=== PATIENT | male | born 1950 | race African-American/Black ===

== ENCOUNTER 2018-02-06 18:29 | Inpatient (IN) | payer MEDICARE ==
[~2018-02-06 18:29] MED LIST: Heparin 1,000 UNITS/ML VIAL ONE
[2018-02-06 18:59] LABS: Bilirubin Negative (Negative); Blood, Urine Negative (Negative); Clarity CLEAR (Clear); Glucose, Urine (Dipstick) 100 mg/dL (Negative); Leukocyte Negative (Negative); Nitrite Negative (Negative); Protein, Urine (Dipstick) 100 mg/dL (Neg-Trace); Specific Gravity, Urine 1.008 (1.002-1.036); Urobilinogen 0.2 mg/dL (0.2-1.0)
[2018-02-06 19:00] LABS: Bacteria/HPF None Seen HPF (None Seen); Hyaline Casts/LPF 0-3 HYALINE CAST LPF (0-3 Hyaline); Pathc Cast-AUWi Flag 0.14 (0-2.49); RBC/HPF None Seen HPF (0-3); Squamous Epithelial None Seen HPF (0-3); WBC/HPF None Seen HPF (0-3)
[2018-02-06 19:08] LABS: Amphetamine Not Detected (NotDetected); Barbiturates Screen Not Detected (NotDetected); Benzodiazepine Screen Not Detected (NotDetected); Cocaine Metabolite Screen Not Detected (NotDetected); Medtox Reader # READER 4; Methadone Not Detected (NotDetected); Methamphetamine Not Detected (NotDetected); Opiate Screen Not Detected (NotDetected); Oxycodone Screen Not Detected (NotDetected); Phencyclidine (PCP) Not Detected (NotDetected); THC/Cannabinoid Screen Not Detected (NotDetected); Tricyclic Screen Not Detected (NotDetected)
[2018-02-06 19:09] LABS: Medtox Control Line Valid? VALID (VALID)
[2018-02-06 19:15] LABS: #Basophils 0.1 thou/uL (0.0-0.2); #Eosinphils 0.2 thou/uL (0.0-0.7); #Lymphocytes 1.6 thou/uL (1.20-3.40); #Monocytes 1.1 thou/uL (0.11-0.59); #Neutrophils 7.1 thou/uL (1.40-6.50); %Basophils 0.5 % (0.0-1.0); %Eosinophils 1.7 % (0.0-10.0); %Lymphocytes 16.2 % (21.0-51.0); %Monocytes 10.9 % (0.0-10.0); %Neutrophils 70.6 % (42.0-75.0); Hemoglobin 12.1 g/dL (14.0-18.0); Mean Corpuscular HGB CONC 33.5 g/dL (32.0-36.0); Mean Corpuscular Hemoglobin 30.8 pg (27.0-31.0); Mean Corpuscular Volume 91.9 fL (78.0-98.0); Mean Platelet Volume 8.3 fL (7.4-10.4); Platelet Count 155 thou/uL (130-400); RBC Distribution Width 15.3 % (11.5-14.5); Red Blood Cell (RBC) Count 3.94 mill/uL (4.70-6.10)
[2018-02-06 19:38] LABS: ALT (SGPT) Less than 7 U/L (8-55); AST (SGOT) 5 U/L (5-34); Albumin 3.7 g/dL (3.4-4.8); Alkaline Phosphatase 65 U/L (40-150); Anion Gap 27 mmol/L (10-20); BUN (Urea Nitrogen) 96 mg/dL (8.4-25.7); Bilirubin, Total 0.6 mg/dL (0.2-1.2); CK (CPK) 73 U/L (30-200); Calc. Creatinine Clearance 0 mL/min (70-130); Calcium 8.1 mg/dL (7.8-10.44); Carbon Dioxide 17 mmol/L (23-31); Chloride 105 mmol/L (98-107); Estimated GFR-MDRD 3; Glucose 69 mg/dL (80-115); Potassium 5.5 mmol/L (3.5-5.1); Protein, Total 6.7 g/dL (5.8-8.1); Sodium 143 mmol/L (136-145)
[2018-02-06 19:39] LABS: CKMB 1.5 ng/mL (0-6.6); Troponin I 0.043 ng/mL (< 0.028)
[2018-02-06 19:45] LABS: Base Excess-Venous -1.8 mmol/L (0 (+/- 2.5)); CO2 Tension (PvCO2) 29.4 mmHg (41.0-51.0); Calcium, Ionized 0.79 mmol/L (1.12-1.32); Hemoglobin - Calc 12.2 g/dL (12.0-18.0); O2 Tension (PvO2) 80.2 mmHg (35.0-45.0); Potassium 5.1 mmol/L (3.4-4.7); T. Carbon Dioxide 21.9 mmol/L (1.0-85.0); pH (Venous) 7.462 (7.35-7.45); vO2 Saturation-calc 96.6 % (94-98)
--- NOTE | 2018-02-06 20:28 | RAD ---
RADIOGRAPH CHEST 1 VIEW: HISTORY: A 67-year-old male with dyspnea. FINDINGS: There is cardiomegaly. The thoracic aorta is tortuous and ectatic. There is no evidence of air space density, pulmonary edema, or pneumothorax. The lateral costophrenic angles are sharp. There is an old fracture deformity at the lateral aspect of the right fifth rib. IMPRESSION: 1) No acute pulmonary findings. 2) Cardiomegaly without congestive heart failure. 3) Ectasia of thoracic aorta. jn [] POS: JIN
[2018-02-06] MEDS ORDERED: Ondansetron ODT 4 MG TAB SL PRN (21:29)
[2018-02-06] MEDS ORDERED: Acetaminophen 325 MG TAB PO PRN (21:29)
[2018-02-06] MEDS ORDERED: Ondansetron HCl/PF 4 MG/2 ML Vial IVP PRN (21:29)
[2018-02-06 21:48] VITALS: BMI 28.9
--- NOTE | 2018-02-06 22:13 | CON ---
DATE OF CONSULTATION: 02/06/2018 NEPHROLOGY CONSULTATION REASON FOR CONSULTATION: Hyperkalemia. HISTORY OF PRESENT ILLNESS: A 67-year-old gentleman who missed dialysis with a clotted access, prese nted to the hospital with potassium of more than 7. The patient denies any nausea, vomiting or chest pain. PAST MEDICAL HISTORY: Significant for end-stage renal disease, hypertension, anemia, history of seco ndary hyperparathyroidism, history of right nephrectomy, history of proteinuria, history of tunneled dialysis catheter, history of AV fistula. HOME MEDICATION: List reviewed. HOSPITAL MEDICATIONS: List reviewed. ALLERGIES: Reviewed. REVIEW OF SYSTEMS: A 15-point review of systems was performed and was negative except for positives noted above. GENERAL: Weakness- HEAD: Headache- NECK: No swelling or lumps. NOSE: No epistaxis or discharge. EYES: No diplopia or pain. RESPIRATORY: Dyspnea- CARDIOVASCULAR: Chest pain- GASTROINTESTINAL: Nausea- /MOUNTER SOUSAPHONES: Hematuria- MUSCULOSKELETAL: No joint pain. NEUROPSYCHIATIC SYSTEMS: No suicidal ideation. No ideation. SKIN: Denies any rash or ulcer. CONSTITUTIONAL: No fever or chills. PHYSICAL EXAMINATION: GENERAL: Patient is awake and alert. VITAL SIGNS: Afebrile, pulse 75, breathing 16, blood pressure 200/100. HEAD/NECK: Normocephalic. Atraumatic. EYES: EOMI. No deformity. EARS: Clear. No ulcers. NOSE: Intact. No lesions. MOUTH: Clear. No discharge. THROAT: Clear. No exudate. LUNGS: Clear. No crackles. CARDIAC: S1, S2. No rub. ABDOMEN: Benign. BS+. GENITALIA/RECTUM: Starr absent. BACK/EXTREMITIES: Edema 0+ Ulcer- NEUROLOGICAL: Alert and motor intact. SKIN: Rash- Bruise- LYMPHATICS: Edema- Ulcer- LABORATORY DATA: Pending. ASSESSMENT AND RECOMMENDATIONS: 1. Stage 6 chronic kidney disease. We will plan dialysis, failed access, will plan temporary cathet er per surgery. Surgery input appreciated. 2. Hypertension. Plan ultrafiltration. 3. Anemia, stable. 4. Medications based on glomerular filtration rate are appropriate. Noncompliance is a major issue. The patient should have presented to the hospital yesterday for access, but failed to do so.
--- NOTE | 2018-02-06 23:08 | OP ---
PREOPERATIVE DIAGNOSIS: Thrombosed fistula right upper arm inflow proximal radial artery, outflow ce phalic vein, previous intervention elsewhere occluding the basilic vein outflow. SURGEON: Dr. Wolfgang Pruett. ANESTHESIA: 1% Xylocaine. PROCEDURE IN DETAIL: At the patient's bedside, his right groin was clipped of hair, prepared with Ch loraPrep, draped in routine fashion. Seldinger technique used to place a Trialysis catheter, secured with 3-0 nylon suture. Each port aspirated blood and flushed with heparinized saline solution.
[2018-02-06 23:09] LABS: Hep B Core Total Ab Non-Reactive (NonReactive); Hep B Core Total Index 0.08 S/CO (0-0.79)
[2018-02-06 23:10] LABS: HBSAB Concentration 4.85 mIU/mL; HBSAg Index 0.21 S/CO (0-0.99); Hep B Surf AB Non-Reactive (NonReactive); Hep B Surf Ag Non-Reactive S/CO (NonReactive)
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
[2018-02-07] MEDS ORDERED: Cyclobenzaprine 10 MG TAB PO PRN (05:35)
--- NOTE | 2018-02-07 06:13 | CON ---
DATE OF CONSULTATION: 02/06/2018 REASON FOR CONSULTATION: Medical management of medical comorbidities. PRIMARY CARE PHYSICIAN: None reported. CODE STATUS: Full code. TIME OF EVALUATION: 3:00 a.m. CHIEF COMPLAINT: Tenderness and redness in the right upper arm where he has a dialysis access. HISTORY OF PRESENT ILLNESS: This is a 67-year-old male patient with past medical history of end-sta ge renal disease on hemodialysis. The patient has right upper arm redness, associated with swelling, decreased range of motion due to tenderness. The patient reported that it has been like that for th e past 2 days, unable to get dialysis yesterday. He also reported associated shortness of breath, an d occasional diarrhea. No clear triggers, no alleviating factors, Dr. Pruett is admitting the patien t, and placed a hemodialysis catheter. By the time of my examination the patient has received dialys is and is feeling comfortable, much improved. Has had a new hemodialysis catheter in the right groin . REVIEW OF SYSTEMS: CONSTITUTIONAL: No fever, no chills. Generalized weakness. RESPIRATORY: No cough, sputum production or shortness of breath. CARDIOVASCULAR: No chest pain, palpitations, shortness of breath. GASTROINTESTINAL: No nausea, vomiting, diarrhea or abdominal pain. MESSAGE BROKER DEVELOPER: No dizziness, headache or feeling lightheaded. GENITOURINARY: No burning of urination. EXTREMITIES: The patient has right upper arm redness, swelling, tenderness, decreased range of motio n due to tenderness. All other systems were reviewed and negative except for the findings mentioned above. PAST MEDICAL HISTORY: The patient has a history of end-stage renal disease on hemodialysis, ____, hy pertension. PAST SURGICAL HISTORY: Nephrectomy, right dialysis fistula, left foot surgery. PSYCHIATRIC HISTORY: No history of suicidal ideation or any psych history. SOCIAL HISTORY: The patient smokes half pack of cigarettes per day. FAMILY HISTORY: Noncontributory for current presentation. ALLERGIES: CODEINE. MEDICATIONS: Clonidine, hydralazine, aspirin, calcium, carvedilol, isosorbide, pantoprazole, sevelam er. PHYSICAL EXAMINATION: VITAL SIGNS: On presentation, blood pressure 207/100 with heart rate 77, respiratory rate was 18, te mperature 97.8, oxygen saturation 94. GENERAL APPEARANCE: The patient is alert, oriented, no acute distress. HEENT: Eyes; normal conjunctivae. Moist oral mucosa. Anicteric. NECK: No JVD. RESPIRATORY: Bilateral air entry. No rales, no wheezing. Symmetric expansion. CARDIOVASCULAR: Normal rate, regular rhythm. No murmurs. No gallop or edema. Pressure was hyperte nsive on presentation. After dialysis blood pressure has been on the low side. ABDOMEN: Soft, normal bowel sounds. MUSCULOSKELETAL: Baseline range of motion and strength. No tenderness. SKIN: Warm, intact. No pallor, no rash, except for the right upper arm where the patient has rednes s, tenderness. ____ and decreased range of motion, increased temperature in that area. NEURO: No evidence of any focal weakness. Baseline speech. Cranial nerves seems to be intact. PSYCHIATRIC: The patient is in a good mood, not sad, oriented, optimal judgment. IMAGING: EKG was reviewed. The patient had normal sinus rhythm, ventricular rate 77, ID 154, QRS 76 , QT corrected 470. Normal EKG. Chest x-ray was reviewed. The patient has no acute cardiopulmonary findings, cardiomegaly without congestive heart failure, ____ of thoracic aorta. LABORATORY DATA: Reviewed. White count 10, hemoglobin 12.1, MCV 91, platelet count 155. Blood gas was done; ABGs; pH 7.4, pCO2 of 29, pO2 of 80. Chemistry: Sodium 143, potassium 5.5 on presentation , chloride 105, carbon dioxide 17, anion gap 27, BUN 96, creatinine 18.0, GFR 3, glucose 69. Magnesi um was 3. Total bilirubin 0.6. LFTs are negative. Beta natriuretic peptide was 1358. Troponin 0.0 43. Urine was negative. Toxicology was negative. Hepatitis panel was negative. ASSESSMENT AND PLAN: 1. The patient was admitted to Dr. Preutt's service for malfunctioning right upper arm AV fistula, p floresita has received hemodialysis through hemodialysis catheter in the right groin area. 2. End-stage renal disease on hemodialysis. Dr. Walker has been consulted. The patient received dial ysis, has tolerated well, except for blood pressure being on the low side, which is normal for this p floresita. 3. Hypertensive urgency. The patient presented with systolic blood pressure in the 200s, this has r esolved after hemodialysis. We will reconcile home medication, we will monitor. 4. Hyperlipidemia. Continue statin, low cholesterol diet is advised. 5. Deep venous thrombosis prophylaxis. Thank you for allowing us to participate in the care of your patient. Feel free to call with any que stions.
[2018-02-07] MEDS: cloNIDine 0.2 MG TAB PO SCH ×2 (08:47→20:48)
--- NOTE | 2018-02-07 08:47 | PRG ---
DATE OF SERVICE: 02/07/2018 Ric Mcallister is in IMCU. He could be moved to the medical floor. He was admitted last night for hyp erkalemia related to lack of dialysis and transferred from [facility] Emergency R o[facility]. His potassium was 7 at [facility] and on recheck here was 5.5. He underwen t dialysis last night. He is scheduled for a fistulogram today right arm. He has had Interventional Radiology at [facility], occlude his basilic vein outflow, direct outflow to the cephalic vein in 2014. I was completely unaware of this. The patient is undergoing ultrasound vein evaluation for consideration of possibility of considering a new dialysis access pending the ability of Radiology t o resurrect his right arm cephalic vein fistula. He has a temporary Trialysis catheter. Await Inter ventional Radiology fistulogram results. Await vascular ultrasound, n.p.o. until interventional stud y is complete.
[2018-02-07] MEDS: Carvedilol 25 MG TAB PO SCH ×2 (08:48→20:48)
[2018-02-07] MEDS: Sevelamer Carbonate 800 MG TAB PO SCH ×2 (08:48→17:03)
[2018-02-07] MEDS: hydrALAZINE 25 MG TAB PO SCH ×3 (08:49→20:48)
[2018-02-07] MEDS: Calcium Acetate 667 MG CAP PO SCH ×3 (08:49→17:03)
[2018-02-07] MEDS: traMADol HCl 50 MG TAB PO SCH ×2 (08:50→20:48)
--- NOTE | 2018-02-07 09:57 | PDOC.PN ---
- Subjective Encounter Start Date: 02/07/18 Encounter Start Time: 09:55 Subjective: feels well - Objective MAR Reviewed: Yes Vital Signs & Weight: Vital Signs (12 hours) Temp Pulse Resp BP BP Pulse Ox 02/07/18 08:49 77 198/98 H 02/07/18 08:47 198/98 H 02/07/18 08:03 99 F 77 20 02/07/18 07:15 99 F 77 20 193/89 H 96 02/07/18 04:12 97.7 F 73 16 187/97 H 94 L 02/07/18 03:18 145/84 H 02/07/18 01:55 195/66 H 02/07/18 00:17 98.1 F 86 18 166/86 H 98 Weight Weight 183 lb 11.2 oz I&O: 02/06/18 02/07/18 02/08/18 06:59 06:59 06:59 Intake Total 30 Output Total 1999 Balance -1970 Result Diagrams: 02/06/18 19:06 02/06/18 19:04 Phys Exam - Physical Examination Neck: no JVD Respiratory: clear to auscultation bilateral Cardiovascular: RRR, no significant murmur Gastrointestinal: soft, positive bowel sounds Musculoskeletal: no edema Dx/Plan (1) HTN (hypertension) Code(s): I10 - ESSENTIAL (PRIMARY) HYPERTENSION Status: Chronic Qualifiers: Hypertension type: essential hypertension Qualified Code(s): I10 - Essential (primary) hypertension (2) Acidosis, metabolic Code(s): E87.2 - ACIDOSIS Status: Acute (3) Hyperkalemia Code(s): E87.5 - HYPERKALEMIA Status: Acute (4) ESRD on hemodialysis Code(s): N18.6 - END STAGE RENAL DISEASE; Z99.2 - DEPENDENCE ON RENAL DIALYSIS Status: Chronic - Plan NPO for HD access -: cont HD per renal -: IV BP control as needed * .
--- NOTE | 2018-02-07 10:01 | ULT ---
BILATERAL UPPER EXTREMITY VENOUS MAPPING: Date: 02/07/18 HISTORY: Dialysis access. End-stage renal disease. Clotted right upper extremity arteriovenous dialysis fistul a. FINDINGS: There is evidence of a right upper extremity arteriovenous dialysis fistula, which appears to represe nt a brachial artery to cephalic vein fistula. The entire right upper extremity cephalic vein outflow is occluded with echogenic material/thrombus throughout the cephalic vein outflow of the fistula. RIGHT UPPER EXTREMITY BASILIC VEIN DIAMETERS: Upper Arm: 4.4 mm Mid Arm: 4.5 mm Distal Arm: 3.0 mm Antecubital Fossa: 2.3 mm Proximal Forearm: 2.7 mm Mid Forearm: 1.4 mm Distal Forearm: 1.0 mm LEFT UPPER EXTREMITY CEPHALIC VEIN DIAMETERS: Upper Arm: 2.8 mm Mid Arm: 2.4 mm Distal Arm: 2.0 mm Antecubital Fossa: 3.2 mm Proximal Forearm: 2.0 mm Mid Forearm: 2.2 mm Distal Forearm: 1.6 mm LEFT UPPER EXTREMITY BASILIC VEIN DIAMETERS: Upper Arm: 3.5 mm Mid Arm: 3.8 mm Distal Arm: 2.9 mm Antecubital Fossa: 1.9 mm Proximal Forearm: 1.3 mm Mid Forearm: 0.7 mm Distal Forearm: 1.1 mm RIGHT UPPER EXTREMITY ARTERIAL DIAMETERS: Brachial Artery: 0.5 mm Radial Artery: 3.1 mm Ulnar Artery: 3.0 mm LEFT UPPER EXTREMITY ARTERIAL DIAMETERS: Brachial Artery: 5.6 mm Radial Artery: 2.5 mm Ulnar Artery: 2.3 mm IMPRESSION: 1. Occlusion of the right upper extremity cephalic vein outflow of the arteriovenous dialysis fistul a. 2. Venous diameters in the bilateral upper extremities as described above. POS: [facility]
[2018-02-07] MEDS ORDERED: Activase 2 MG VIAL CATH SCH (12:30)
--- NOTE | 2018-02-07 16:31 | PRG ---
DATE OF SERVICE: 02/07/2018 SUBJECTIVE: Patient was seen and examined at bedside and overnight events noted. Patient denies any shortness of breath or chest pain or palpitation. No history of nausea or vomiting or diarrhea or f ever or chills or cramps. OBJECTIVE: General: This is a 67-year-old, well-built male in no acute distress VITAL SIGNS: Temperature 98, pulse 77, respiration 18, pressure 185/97. HEENT: Atraumatic, normocephalic, Oral mucosa is moist NECK: Supple CARDIOVASCULAR: S1S2 heard, Rate and rhythm regular RESPIRATORY: Clear to auscultation GASTROINTESTINAL: Abdomen is soft MUSCULOSKELETAL: No tenderness, No edema DERMATOLOGIC: No skin rash NEUROLOGIC: Alert and awake and oriented X3, No focal neurologic deficits. Moving all the extremities . PSYCHIATRIC: Mood and affect normal LABORATORY DATA: Potassium is 5.1, BUN is 96, creatinine is 8.1 No labs done today. ASSESSMENT AND PLAN: 1. End-stage renal disease. Continue dialysis. No acute indication for dialysis. We will check la bs in the morning. Patient had dialysis early this morning. 2. Hypertension. Titrate medications. Remove fluid with dialysis. 3. Anemia. 4. Edema. 5, Hyperkalemia, better. 6. Continue dialysis as tolerated.
[2018-02-07] MEDS: Ibuprofen 200 MG TAB PO PRN (18:23)
--- NOTE | 2018-02-07 18:57 | SPC ---
RIGHT UPPER EXTREMITY DIALYSIS FISTULOGRAM: PERCUTANEOUS BALLOON ANGIOPLASTY RIGHT UPPER EXTREMITY DIALYSIS FISTULA: HISTORY: Renal failure. Poor function, right upper extremity dialysis fistula. FLUOROSCOPY TIME: 7.8 minutes FINDINGS: After explaining the procedure and answering all questions, the right upper extremity was prepped and draped in the usual sterile fashion. Sterile technique, buffered local anesthesia, and a 22 gauge n eedle were used to gain access to the most peripheral portion of the right upper extremity cephalic d ialysis fistula, at the level of the antecubital fossa. A short, [address] carefully place d. A 4 Nepalese catheter was placed over a 0.035 Glidewire to the most central aspect of the cephalic vein. Imaging shows the cephalic vein centrally to be widely patent. Peripheral to the right axilla , the vein becomes very small with a very slow trickle of flow. A focal area of stricture was seen a t the level of the proximal humeral shaft and eventually addressed. At the level of the mid to distal humeral shaft, two focal areas of aneurysmal dilatation of the ceph alic fistula, visible on the surface, show large, oval, hard thrombi. Given the size, location, and hardness/chronicity, tPA was not given, as it would not address the vahid y hard clot within the aneurysms. A 6 mm x 4 cm balloon was carefully placed to the central aspect of the cephalic fistula. Serial dil atations were made along the course of the cephalic fistula. A full balloon profile was achieved, wi th the exception of the exception of the stricture at the level of the proximal humeral shaft. The balloon was then exchanged for a 6 mm x 2 cm cutting balloon. The balloon was placed at the leve l of the stricture. Multiple dilatations were performed, eventually achieving full balloon profile, relieving the focal stricture. Serial imaging after this again showed a slow trickle of flow around the hard clots within the focal areas of aneurysmal dilatation. Some extravasation of contrast was seen at the level of stricture di latation. IMPRESSION: 1. While there was successful balloon angioplasty of the stricture within the central aspect of the cephalic venous fistula, it did very little to improve the very slow trickle of flow throughout the f istula. The cause of the near complete stasis is the very hard oval clots within the two focal areas of aneurysmal dilatation of the fistula, at the level of the mid to distal humeral shaft. 2. While the outlook for this fistula is bleak, one surgical consideration may be surgical thrombect chalo of the focal areas of hard clot within the two foci of dilatation. POS: [facility]
--- NOTE | 2018-02-07 19:43 | PRG ---
DATE OF SERVICE: 02/07/2018 SUBJECTIVE: Ric Mcallister underwent angiogram of his fistula and has planned Interventional Radiology declotting of his fistula of right upper arm. This is planned for this afternoon. Ultrasound vein mapping both arms has been performed revealing right upper extremity basilic vein 4.4, 4.5, ant ecubital fossa, 2.7 mm proximal forearm. Left lower extremity cephalic vein basilic vein 3.5, 3.8, 3.9 and 1.9 mm. LUNGS: Clear to auscultation. CARDIAC: Regular rate and rhythm without murmur or gallop. ABDOMEN: Soft, nontender, no masses. ASSESSMENT AND PLAN: Thrombosed fistula of right upper arm. Plan Interventional Radiology. Awaitin g that procedure. Continue dialysis through temporary dialysis catheter. Ultrasound vein mapping re veals acceptable basilic vein (has been clipped previously by Interventional Radiology right) and ayan ilable left upper arm cephalic vein, basilic vein for future fistula access if necessary. Await Radi ology intervention attempts.
[2018-02-07] MEDS: Atorvastatin Calcium 20 MG TAB PO SCH (20:48)
[2018-02-07] MEDS: tiZANidine HCl 4 MG TAB PO SCH (20:48)
[2018-02-08 04:11] LABS: Anion Gap 23 mmol/L (10-20); BUN (Urea Nitrogen) 62 mg/dL (8.4-25.7); Calc. Creatinine Clearance 6 mL/min (70-130); Calcium 8.4 mg/dL (7.8-10.44); Carbon Dioxide 23 mmol/L (23-31); Chloride 98 mmol/L (98-107); Estimated GFR-MDRD 5; Glucose 93 mg/dL (80-115); Potassium 5.6 mmol/L (3.5-5.1); Sodium 138 mmol/L (136-145)
[2018-02-08] MEDS: Calcium Acetate 667 MG CAP PO SCH ×3 (07:39→17:23)
[2018-02-08] MEDS: Ibuprofen 200 MG TAB PO PRN ×2 (07:39→15:20)
[2018-02-08] MEDS: Sevelamer Carbonate 800 MG TAB PO SCH ×2 (07:40→17:23)
[2018-02-08] MEDS: Carvedilol 25 MG TAB PO SCH ×2 (09:11→20:37)
[2018-02-08] MEDS: cloNIDine 0.2 MG TAB PO SCH ×2 (09:11→20:37)
[2018-02-08] MEDS: traMADol HCl 50 MG TAB PO SCH ×2 (09:12→20:37)
[2018-02-08] MEDS: hydrALAZINE 25 MG TAB PO SCH ×3 (09:12→20:36)
--- NOTE | 2018-02-08 11:16 | PRG ---
Patient Name: SAMAN PATTERSON Date of service: 02/08/2018 Subjective: Patient was seen and examined at bedside and overnight events noted. Patient denies any shortness of breath or chest pain or palpitation. No history of nausea or vomiting or diarrhea or fever or chills or cramps. Objective: General: This is a well-built male in no apparent distress. Vital signs: Temperature 97.9, pulse 70, respiratory rate 18, blood pressure 190/92. HEENT: Atraumatic, normocephalic. Oral mucosa is moist. Neck: Supple. Cardiovascular: S1 S2 heard. Rate and rhythm regular. Respiratory: Clear to auscultation. Gastrointestinal: Abdomen is soft. Musculoskeletal: No tenderness. No edema. Dermatologic: No skin rash. Neurologic: Alert and awake and oriented X3. No focal neurologic deficits. Moving all the extremit ies. Psychiatric: Mood and affect normal. LABORATORY DATA: Potassium 5.6, BUN 62, creatinine is 13.3. ASSESSMENT AND PLAN: 1. End-stage renal disease. We will have dialysis today and TTS as tolerated. 2. Dialysis access being clotted. Follow up with surgeon. 3. Hyperkalemia. We will have dialysis. 4. Hypertension. We will increase hydralazine dose, might need to add amlodipine and calcium channe l collin. 5. Edema, remove fluid. 6. Monitor blood pressure after dialysis and will increase hydralazine, okay with adding amlodipine if needed.
--- NOTE | 2018-02-08 11:26 | PDOC.PN ---
- Subjective Encounter Start Date: 02/08/18 Encounter Start Time: 11:25 Subjective: pain R arm from declotting procedure - Objective MAR Reviewed: Yes Vital Signs & Weight: Vital Signs (12 hours) Temp Pulse Resp BP BP Pulse Ox 02/08/18 09:12 70 200/71 H 02/08/18 09:11 200/71 H 02/08/18 07:36 97.9 F 70 14 190/92 H 95 02/08/18 07:19 97.7 F 66 15 02/08/18 04:30 97.7 F 66 15 154/61 H 98 02/08/18 00:19 97.7 F 70 20 147/67 H 97 Weight Weight 189 lb 2 oz I&O: 02/07/18 02/08/18 02/09/18 06:59 06:59 06:59 Intake Total 30 560 Output Total 1999 100 Balance -1970 460 Result Diagrams: 02/06/18 19:06 02/08/18 03:48 Phys Exam - Physical Examination Neck: no JVD Respiratory: clear to auscultation bilateral Cardiovascular: RRR, no significant murmur Gastrointestinal: soft, positive bowel sounds Musculoskeletal: edema present Dx/Plan (1) HTN (hypertension) Code(s): I10 - ESSENTIAL (PRIMARY) HYPERTENSION Status: Chronic Qualifiers: Hypertension type: essential hypertension Qualified Code(s): I10 - Essential (primary) hypertension (2) Acidosis, metabolic Code(s): E87.2 - ACIDOSIS Status: Acute (3) Hyperkalemia Code(s): E87.5 - HYPERKALEMIA Status: Acute (4) ESRD on hemodialysis Code(s): N18.6 - END STAGE RENAL DISEASE; Z99.2 - DEPENDENCE ON RENAL DIALYSIS Status: Chronic - Plan cont HD -: failed declotting of fistula -: surg for fistula on L tomorrow * .
--- NOTE | 2018-02-08 18:50 | PRG ---
DATE OF SERVICE: 02/08/2018 Ric Mcallister had a fistulogram yesterday unsuccessful. His outflow was poor. He has multiple aneury sms. Unfortunately, this fistula cannot be salvaged. There are several options. His basilic vein o utflow in his right upper arm has been clipped above the antecubital fossa by Interventional Radiolog y. One could do a basilic vein transposition fistula using the arterial inflow from the proximal art vinicius in the right arm to transpose the basilic vein. Another option would be to place a new fistula i n his left arm either option requires placement of hemodialysis catheter. The patient desires a seco nd option. We will plan n.p.o. after midnight tonight and plan placement of left arm fistula and hem odialysis catheter tomorrow. The patient will be discharged home after the surgery tomorrow.
[2018-02-08] MEDS: tiZANidine HCl 4 MG TAB PO SCH (20:35)
[2018-02-08] MEDS: Atorvastatin Calcium 20 MG TAB PO SCH (20:37)
[2018-02-09 04:49] LABS: Anion Gap 17 mmol/L (10-20); BUN (Urea Nitrogen) 40 mg/dL (8.4-25.7); Calc. Creatinine Clearance 9 mL/min (70-130); Calcium 9.1 mg/dL (7.8-10.44); Carbon Dioxide 28 mmol/L (23-31); Chloride 98 mmol/L (98-107); Estimated GFR-MDRD 7; Glucose 92 mg/dL (80-115); Potassium 4.7 mmol/L (3.5-5.1); Sodium 138 mmol/L (136-145)
[2018-02-09] MEDS: Sevelamer Carbonate 800 MG TAB PO SCH ×2 (08:33→17:47)
[2018-02-09] MEDS: Calcium Acetate 667 MG CAP PO SCH ×3 (08:33→17:47)
[2018-02-09] MEDS: hydrALAZINE 25 MG TAB PO SCH ×3 (09:17→20:51)
[2018-02-09] MEDS: Carvedilol 25 MG TAB PO SCH ×2 (09:17→20:53)
[2018-02-09] MEDS: cloNIDine 0.2 MG TAB PO SCH ×2 (09:18→20:53)
[2018-02-09] MEDS: traMADol HCl 50 MG TAB PO SCH ×2 (09:18→20:53)
[2018-02-09] MEDS ORDERED: Amlodipine 5 MG TAB PO SCH (10:30)
--- NOTE | 2018-02-09 11:03 | PDOC.PN ---
- Subjective Encounter Start Date: 02/09/18 Encounter Start Time: 11:02 Subjective: hungry, waiting for surgery today - Objective MAR Reviewed: Yes Vital Signs & Weight: Vital Signs (12 hours) Temp Pulse Resp BP BP Pulse Ox 02/09/18 09:18 167/80 H 02/09/18 09:17 73 156/82 H 02/09/18 08:00 97.6 F 73 15 98 02/09/18 07:31 97.6 F 73 15 142/85 H 93 L 02/09/18 04:00 98.0 F 69 14 150/74 H 95 02/09/18 00:27 97.5 F L 65 12 119/65 95 Weight Weight 182 lb 11.2 oz I&O: 02/08/18 02/09/18 02/10/18 06:59 06:59 06:59 Intake Total 560 1090 Output Total 100 2150 Balance 460 -1060 Result Diagrams: 02/06/18 19:06 02/09/18 03:30 Phys Exam - Physical Examination Neck: no JVD Respiratory: clear to auscultation bilateral Cardiovascular: RRR, no significant murmur Gastrointestinal: soft, positive bowel sounds Musculoskeletal: no edema Dx/Plan (1) HTN (hypertension) Code(s): I10 - ESSENTIAL (PRIMARY) HYPERTENSION Status: Chronic Qualifiers: Hypertension type: essential hypertension Qualified Code(s): I10 - Essential (primary) hypertension (2) Acidosis, metabolic Code(s): E87.2 - ACIDOSIS Status: Acute (3) Hyperkalemia Code(s): E87.5 - HYPERKALEMIA Status: Acute (4) ESRD on hemodialysis Code(s): N18.6 - END STAGE RENAL DISEASE; Z99.2 - DEPENDENCE ON RENAL DIALYSIS Status: Chronic - Plan cont current plan of care AV fistula today, then DC * .
--- NOTE | 2018-02-09 12:53 | PRG ---
DATE OF SERVICE: 02/09/2018. SUBJECTIVE: Patient was seen and examined at bedside and overnight events noted. Patient denies any shortness of breath or chest pain or palpitation. No history of nausea or vomiting or diarrhea or f ever or chills or cramps. OBJECTIVE: GENERAL: This is a well-built male, in no apparent distress. VITAL SIGNS: Temperature 97.6, pulse 60, respiratory rate 18, blood pressure 108/63. HEENT: Atraumatic, normocephalic. Oral mucosa is moist. NECK: Supple. CARDIOVASCULAR: S1, S2 heard. Rate and rhythm regular. RESPIRATORY: Clear to auscultation. GASTROINTESTINAL: Abdomen is soft. MUSCULOSKELETAL: No tenderness, no edema. DERMATOLOGIC: No skin rash. NEUROLOGIC: Alert and awake and oriented x3. No focal neurologic deficits. Moving all the extremit ies. PSYCHIATRIC: Mood and affect normal. LABORATORY DATA: Potassium is 4.7, BUN is 40, creatinine is 9.7. ASSESSMENT AND PLAN: 1. End-stage renal disease. Continue hemodialysis as tolerated. 2. Hyperkalemia, better. 3. . 4. Edema. Overall, blood pressure seems to be better. Tolerating dialysis well. Follow up with Surgery for ac cess placement and we will follow.
--- NOTE | 2018-02-09 17:27 | PRG ---
DATE OF SERVICE: 02/09/2018 SUBJECTIVE: Ric Mcallister's surgery is running late today. The patient prefers to delay this, so we can eat. It would be too late this evening to perform this operation. We will let him eat today and plan on performing his left arm fistula, hemodialysis catheter on Wednesday.
[2018-02-09] MEDS: tiZANidine HCl 4 MG TAB PO SCH (20:53)
[2018-02-09] MEDS: Atorvastatin Calcium 20 MG TAB PO SCH (20:53)
--- NOTE | 2018-02-10 07:12 | PDOC.PN ---
- Subjective Encounter Start Date: 02/10/18 Encounter Start Time: 07:10 Subjective: surgery postponed til 02/11. no CO - Objective MAR Reviewed: Yes Vital Signs & Weight: Vital Signs (12 hours) Temp Pulse Resp BP BP Pulse Ox 02/10/18 04:00 98.1 F 71 18 139/69 94 L 02/10/18 00:00 98.5 F 74 18 166/60 H 95 02/09/18 20:53 164/77 H 02/09/18 20:51 74 164/77 H 02/09/18 20:16 98.5 F 74 16 171/51 H 96 02/09/18 19:15 97.8 F 75 15 99 Weight Weight 176 lb 4.8 oz I&O: 02/09/18 02/10/18 02/11/18 06:59 06:59 06:59 Intake Total 1090 890 Output Total 2150 Balance -1060 890 Result Diagrams: 02/06/18 19:06 02/09/18 03:30 Additional Labs: Accuchecks 02/09/18 16:43 POC Glucose 77 Phys Exam - Physical Examination Neck: no JVD Respiratory: clear to auscultation bilateral Cardiovascular: RRR, no significant murmur Gastrointestinal: soft, positive bowel sounds Musculoskeletal: no edema Dx/Plan (1) HTN (hypertension) Code(s): I10 - ESSENTIAL (PRIMARY) HYPERTENSION Status: Chronic Qualifiers: Hypertension type: essential hypertension Qualified Code(s): I10 - Essential (primary) hypertension (2) Acidosis, metabolic Code(s): E87.2 - ACIDOSIS Status: Acute (3) Hyperkalemia Code(s): E87.5 - HYPERKALEMIA Status: Acute (4) ESRD on hemodialysis Code(s): N18.6 - END STAGE RENAL DISEASE; Z99.2 - DEPENDENCE ON RENAL DIALYSIS Status: Chronic - Plan cont current meds -: HD today -: AV fitula tomorrow, DC home post op * .
[2018-02-10] MEDS ORDERED: Amlodipine 5 MG TAB PO SCH (09:00)
[2018-02-10] MEDS ORDERED: Heparin 10,000 UNITS/ 10 ML VIAL ONE (09:00)
[2018-02-10] MEDS: Sevelamer Carbonate 800 MG TAB PO SCH ×2 (09:13→15:34)
[2018-02-10] MEDS: hydrALAZINE 25 MG TAB PO SCH ×3 (09:13→20:38)
[2018-02-10] MEDS: traMADol HCl 50 MG TAB PO SCH ×2 (09:14→20:40)
[2018-02-10] MEDS: Carvedilol 25 MG TAB PO SCH ×2 (09:14→20:38)
[2018-02-10] MEDS: Calcium Acetate 667 MG CAP PO SCH ×3 (15:35→17:19)
[2018-02-10] MEDS: cloNIDine 0.2 MG TAB PO SCH ×2 (15:35→20:38)
--- NOTE | 2018-02-10 19:19 | PRG ---
DATE OF SERVICE: 02/10/2018 NEPHROLOGY PROGRESS NOTE SUBJECTIVE: The patient was seen and examined at bedside and overnight events noted. The patient de nies any shortness of breath or chest pain or palpitation. No history of nausea or vomiting or diarr hea or fever or chills or cramps. OBJECTIVE: GENERAL: This is a well-built male, in no apparent distress. VITAL SIGNS: Temperature 97.0, pulse 62, respiratory rate 16, blood pressure 164/77. HEENT: Atraumatic, normocephalic. Oral mucosa is moist. NECK: Supple. CARDIOVASCULAR: S1, S2 heard. Rate and rhythm regular. RESPIRATORY: Clear to auscultation. GASTROINTESTINAL: Abdomen is soft. MUSCULOSKELETAL: No tenderness. No edema. DERMATOLOGIC: No skin rash. NEUROLOGIC: Alert and awake and oriented x3. No focal neurologic deficits. Moving all the extremit ies. PSYCHIATRIC: Mood and affect normal. LABORATORY DATA: No labs done today. ASSESSMENT AND PLAN: 1. End-stage renal disease. Continue dialysis as tolerated. 2. Hyperkalemia, better. 3. Hypertension. Titrate blood pressure medicines. 4. Edema, controlled. 5. Anemia. Will have Epogen. 6. We will titrate blood pressure medicines. We will continue to follow.
[2018-02-10] MEDS: Atorvastatin Calcium 20 MG TAB PO SCH (20:38)
[2018-02-10] MEDS: tiZANidine HCl 4 MG TAB PO SCH (20:38)
[2018-02-10] MEDS ORDERED: Milk Of Magnesia 30 ML UDCUP PO PRN (21:46)
[2018-02-11] MEDS ORDERED: Fleet Enema 133 ML BOT PR PRN (00:15)
[2018-02-11 05:01] LABS: Anion Gap 15 mmol/L (10-20); BUN (Urea Nitrogen) 43 mg/dL (8.4-25.7); Calc. Creatinine Clearance 9 mL/min (70-130); Calcium 9.1 mg/dL (7.8-10.44); Carbon Dioxide 29 mmol/L (23-31); Chloride 96 mmol/L (98-107); Estimated GFR-MDRD 7; Glucose 96 mg/dL (80-115); Potassium 5.2 mmol/L (3.5-5.1); Sodium 135 mmol/L (136-145)
[2018-02-11] MEDS: Sevelamer Carbonate 800 MG TAB PO SCH ×2 (08:29→16:47)
[2018-02-11] MEDS: Calcium Acetate 667 MG CAP PO SCH ×3 (08:29→16:47)
[2018-02-11] MEDS ORDERED: Amlodipine 5 MG TAB PO SCH (09:00)
[2018-02-11] MEDS: traMADol HCl 50 MG TAB PO SCH ×2 (09:39→20:25)
[2018-02-11] MEDS: Carvedilol 25 MG TAB PO SCH ×2 (09:39→20:25)
[2018-02-11] MEDS: hydrALAZINE 25 MG TAB PO SCH ×4 (09:43→20:23)
[2018-02-11] MEDS: cloNIDine 0.2 MG TAB PO SCH ×2 (09:43→17:48)
--- NOTE | 2018-02-11 10:46 | PDOC.PN ---
- Subjective Encounter Start Date: 02/11/18 Encounter Start Time: 08:50 -: old records requested/rev Pt seen and examined, chart reviewed in its entirety, this is my first visit with this patient consult for medical managemnt, admitted for clotted permcath, removed, temporary africa placed into right groin, last HD yesterday without issue. to [facility] today for new permcath and fistula creation with Autumn. Pt only complaint is hungry. no F/C, no N/V/d/C, no cP or SOB All systems reviewed and neg x as above - Objective MAR Reviewed: Yes Vital Signs & Weight: Vital Signs (12 hours) Temp Pulse Resp BP Pulse Ox 02/11/18 07:38 98.2 F 63 18 127/67 95 02/11/18 03:25 98 F 70 16 141/65 H 97 02/10/18 23:00 98.4 F 77 16 108/57 L 97 Weight Weight 176 lb 4.8 oz I&O: 02/10/18 02/11/18 02/12/18 06:59 06:59 06:59 Intake Total 890 520 Balance 890 520 Result Diagrams: 02/06/18 19:06 02/11/18 04:25 Phys Exam - Physical Examination Constitutional: NAD HEENT: PERRLA, moist MMs, sclera anicteric, oral pharynx no lesions Neck: no nodes, no JVD, supple, full ROM Respiratory: no wheezing, no rales, no rhonchi, clear to auscultation bilateral Cardiovascular: RRR, no significant murmur, no rub Gastrointestinal: soft, non-tender, no distention, positive bowel sounds Musculoskeletal: pulses present, edema present Neurological: non-focal, normal sensation, moves all 4 limbs Lymphatic: no nodes Psychiatric: normal affect, A&O x 3 Skin: no rash, normal turgor, cap refill <2 seconds Deviation from normal: permcath to right groin dressed, C/D/I Dx/Plan (1) Clotted dialysis access Code(s): T82.49XA - OTH COMPLICATION OF VASCULAR DIALYSIS CATHETER, INIT ENCNTR Status: Acute Qualifiers: Encounter type: initial encounter Qualified Code(s): T82.49XA - Other complication of vascular dialysis catheter, initial encounter Comment: removed, to be replaced today (2) Acidosis, metabolic Code(s): E87.2 - ACIDOSIS Status: Resolved (3) Hyperkalemia Code(s): E87.5 - HYPERKALEMIA Status: Resolved (4) HTN (hypertension) Code(s): I10 - ESSENTIAL (PRIMARY) HYPERTENSION Status: Chronic Qualifiers: Hypertension type: essential hypertension Qualified Code(s): I10 - Essential (primary) hypertension (5) Acute on chronic diastolic CHF (congestive heart failure) Code(s): I50.33 - ACUTE ON CHRONIC DIASTOLIC (CONGESTIVE) HEART FAILURE Status : Resolved (6) ESRD on hemodialysis Code(s): N18.6 - END STAGE RENAL DISEASE; Z99.2 - DEPENDENCE ON RENAL DIALYSIS Status: Chronic - Plan cont current plan of care, out of bed/ambulate * .
--- NOTE | 2018-02-11 11:04 | PRG ---
Patient Name: SAMAN PATTERSON Date of service: 02/11/2018 Subjective: Patient was seen and examined at bedside and overnight events noted. Patient denies any shortness of breath or chest pain or palpitation. No history of nausea or vomiting or diarrhea or fever or chills or cramps. Objective: General: This is a well-built male in no apparent distress. Vital signs: Temperature 98.2, pulse 60, respiratory rate 18, blood pressure 127/67. HEENT: Atraumatic, normocephalic. Oral mucosa is moist. Neck: Supple. Cardiovascular: S1 S2 heard. Rate and rhythm regular. Respiratory: Clear to auscultation. Gastrointestinal: Abdomen is soft. Musculoskeletal: No tenderness. No edema. Dermatologic: No skin rash. Neurologic: Alert and awake and oriented X3. No focal neurologic deficits. Moving all the extremit ies. Psychiatric: Mood and affect normal. LABORATORY DATA: Potassium is 5.3, BUN 43, creatinine 7.3. ASSESSMENT AND PLAN: 1. End-stage renal disease on hemodialysis. 2. Hyperkalemia. 3. Edema. 4. Hypertension. 5. Anemia. Follow up with Surgery for access issues. Continue on dialysis TTS as tolerated.
[2018-02-11] MEDS ORDERED: Midazolam HCl 2 mg/2 ml Vial ONE (11:13)
[2018-02-11] MEDS ORDERED: Fentanyl 100 MCG/2 ML VIAL ONE ×2 (11:13→13:34)
[2018-02-11] MEDS ORDERED: PROPOFOL 200 MG/20 ML VIAL ONE (13:09)
[2018-02-11] MEDS ORDERED: ePHEDrine/0.9% NaCl/PF SYRINGE 50 mg/10 ml ONE (13:09)
[2018-02-11] MEDS ORDERED: PHENYLEPHRINE-NS 100 MCG/ML 10 ML SYRINGE ONE (13:09)
[2018-02-11] MEDS ORDERED: Heparin 10,000 UNITS/1 ML VIAL ONE (13:23)
[2018-02-11] MEDS ORDERED: Lidocaine 2% 10 ML INJ ONE (13:23)
[2018-02-11] MEDS ORDERED: Sodium Chloride 0.9% 20 ML ONE (13:23)
[2018-02-11] MEDS ORDERED: Bupivacaine HCl 0.5%/Epinephrine 1:200,000/PF 30 ml Vial ONE (13:23)
[2018-02-11] MEDS ORDERED: Heparin 5,000 UNITS/ML VIAL ONE (13:23)
[2018-02-11] MEDS ORDERED: Protamine Sulfate 50 MG/5 ML VIAL ONE (13:23)
[2018-02-11] MEDS ORDERED: Propofol 1,000 MG/100 ML VIAL IV ONE (13:26)
--- NOTE | 2018-02-11 16:28 | RAD ---
PORTABLE AP CHEST X-RAY 02/11/18 HISTORY: Post central line placement. COMPARISON: 02/06/18. FINDINGS: There has been interval placement of a left internal jugular vein hemodialysis catheter with tip ove rlying the cavoatrial junction. No pneumothorax or pleural effusion is seen. Cardiac silhouette is ma gnified by projection but is enlarged. Pulmonary vasculature is at the upper limits of normal. Vascul ar calcifications seen in the thoracic aorta. remote right sided rib fractures are seen. No other int erval change. IMPRESSION: Interval placement of tunneled left internal jugular vein hemodialysis catheter without evidence of a pneumothorax. POS: [facility]
[2018-02-11] MEDS: Ibuprofen 200 MG TAB PO PRN (17:48)
[2018-02-11] MEDS: tiZANidine HCl 4 MG TAB PO SCH (20:23)
[2018-02-11] MEDS: Atorvastatin Calcium 20 MG TAB PO SCH (20:25)
[2018-02-11 20:28] VITALS: BP 177/85
--- NOTE | 2018-02-11 21:06 | OP ---
PREOPERATIVE DIAGNOSES: End-stage renal disease, thrombosed cephalic vein fistula, right arm. Inter ventional Radiology clipping of basilic vein arterial inflow above the antecubital fossa, right arm. POSTOPERATIVE DIAGNOSES: End-stage renal disease, thrombosed cephalic vein fistula, right arm, Inter ventional Radiology clipping of basilic vein arterial inflow above the antecubital fossa, right arm, with occluded right internal jugular outflow. Inadequate veins left arm for primary fistula. PROCEDURES PERFORMED: Ultrasound-guided placement of left internal jugular cuffed tunnel hemodialysi s catheter, angiodynamics precurved. Fluoroscopy used. Exploration of left forearm finding veins in adequate for a primary fistula contrary to ultrasound vein mapping. Note in the future, patient can have a right arm primary fistula basilic vein transposition using the stump of the cephalic vein for arterial inflow, possibly. We will schedule as an outpatient in the future. He may need a prostheti c graft. SURGEON: Dr. Wolfgang Pruett ANESTHESIA: Regional TIVA. Local 0.5% Marcaine with epinephrine, 30 mL, mixed with 2% Xylocaine, 10 mL PROCEDURE IN DETAIL: The patient was taken to the operating room where under regional anesthesia and intravenous sedation, his left upper extremity, neck and chest were prepared with ChloraPrep, draped in routine fashion. Ultrasound guidance used to cannulate the right internal jugular vein, but I co uld not thread the J wire indicative of outflow obstruction due to prior catheter. Left internal jugular vein was cannulated using ultrasound guidance and J wire threaded with some flu oroscopic manipulation required. I did direct the J-wire into the superior vena cava. Using the lisa neling device, precurved angiodynamics cuffed tunnel hemodialysis catheter tunneled between the two i ncisions, placing the fabric cuff beneath the skin exit site. Catheter secured with 2 interrupted noriega tures of 3-0 nylon and sterile dressing applied. Smaller medium size dilators placed over the J-wire and internal jugular vein removed. Dilator and pull-away sheath placed over the J-wire into the int ernal jugular vein and under fluoroscopic visualization directed in the superior vena cava following the J wire. J wire and dilator removed and Catheter placed through pull-away sheath and under fluoro scopic visualization, was directed in superior vena cava, and required some manipulation. Pull-away sheath removed. Catheter noted to be in good position fluoroscopically, the platysma approximated wi th 4-0 Monocryl, skin with subdermal 4-0 Monocryl and DermaGlue applied. Each port aspirated blood a nd flushed with heparinized saline solution with 1000 units of heparin per mL indicated volume of the port. In the left arm, proximal forearm incision made longitudinally below the antecubital fossa, carried d own skin and subcutaneous tissue. The antecubital veins were small. The basilic vein was small. Th ere was a more lateral than usual cephalic vein, but its inflow was small and inadequate. No adequat e venous structures were present for a primary fistula. Patient had potential right arm fistul a, thus a prosthetic graft was not placed. Subcutaneous tissues were approximated with 3-0 Monocryl, skin with subdermal 4-0 Monocryl and DermaGlue applied. Note, the patient will need a right arm primary fistula or graft in the future. He will probably nee d a basilic vein transposition type fistula.
[2018-02-12 05:22] VITALS: TEMP 97.3
== END 2018-02-11 22:23 | disposition home or self-care (01) | DRG 252 ==
LOC: ERS 18:29 → IMCU/EMU 20:13 → SURG B 02-10 18:20
PROVIDERS: ADMIT Specialist; ATTEND Specialist
PROC: 5A1D70Z Performance of Urinary Filtration, Intermittent, Less than 6 Hours Per Day (ICD-10-PCS; 2018-02-06)
PROC: 06HM33Z Insertion of Infusion Device into Right Femoral Vein, Percutaneous Approach (ICD-10-PCS; 2018-02-06)
PROC: 057D3ZZ Dilation of Right Cephalic Vein, Percutaneous Approach (ICD-10-PCS; principal; 2018-02-07)
PROC: 05JY0ZZ Inspection of Upper Vein, Open Approach (ICD-10-PCS; 2018-02-11)
PROC: 0JH63XZ Insertion of Tunneled Vascular Access Device into Chest Subcutaneous Tissue and Fascia, Percutaneous Approach (ICD-10-PCS; 2018-02-11)
PROC: 02HV33Z Insertion of Infusion Device into Superior Vena Cava, Percutaneous Approach (ICD-10-PCS; 2018-02-11)
DX: T82.868A Thrombosis due to vascular prosthetic devices, implants and grafts, initial encounter (principal); N18.6 End stage renal disease; I50.33 Acute on chronic diastolic (congestive) heart failure; N25.81 Secondary hyperparathyroidism of renal origin; E87.2 Acidosis; I13.2 Hypertensive heart and chronic kidney disease with heart failure and with stage 5 chronic kidney disease, or end stage renal disease; E87.5 Hyperkalemia; D63.1 Anemia in chronic kidney disease; I16.0 Hypertensive urgency; F17.210 Nicotine dependence, cigarettes, uncomplicated; E78.5 Hyperlipidemia, unspecified; Z99.2 Dependence on renal dialysis; Z90.5 Acquired absence of kidney; Z91.19 Patient's noncompliance with other medical treatment and regimen; Z79.02 Long term (current) use of antithrombotics/antiplatelets; Z79.82 Long term (current) use of aspirin
CPT/HCPCS: 36415; 36416; 36901; 36902; 71045; 80048; 80053; 80306; 81003; 81015; 82330; 82550; 82553; 82803; 83735; 83880; 84484; 85025; 86704; 86706; 87340; 90935; 93005; 93970; 94760; A4216; C1725; C1752; C1769; G0257; G0365; J0670; J1642; J1644; J2250; J2704; J2720; J2997; J3010

== ENCOUNTER 2018-02-25 07:42 | Day surgery (SDC) | payer MEDICARE ==
[2018-02-24 13:31] VITALS: BMI 27.3
[2018-02-25] MEDS ORDERED: Ioversol 68 % 50 ML VIAL ONE (08:34)
[2018-02-25] MEDS ORDERED: Bupivacaine HCl 0.5%/Epinephrine 1:200,000/PF 30 ml Vial ONE (08:34)
[2018-02-25] MEDS ORDERED: Protamine Sulfate 50 MG/5 ML VIAL ONE (08:34)
[2018-02-25] MEDS ORDERED: Lidocaine 2% w/Epinephrine 1:200K 20 ML VIAL ONE (08:34)
[2018-02-25] MEDS ORDERED: Heparin 5,000 UNITS/ML VIAL ONE (08:34)
[2018-02-25 08:47] LABS: #Eosinphils 0.4 thou/uL (0.0-0.7); #Lymphocytes 1.3 thou/uL (1.20-3.40); #Monocytes 0.8 thou/uL (0.11-0.59); #Neutrophils 5.1 thou/uL (1.40-6.50); %Basophils 0.4 % (0.0-1.0); %Eosinophils 4.7 % (0.0-10.0); %Lymphocytes 17.2 % (21.0-51.0); %Monocytes 10.4 % (0.0-10.0); %Neutrophils 67.3 % (42.0-75.0); Hemoglobin 9.8 g/dL (14.0-18.0); Mean Corpuscular Hemoglobin 30.3 pg (27.0-31.0); Mean Platelet Volume 7.4 fL (7.4-10.4); Platelet Count 196 thou/uL (130-400); RBC Distribution Width 15.6 % (11.5-14.5); Red Blood Cell (RBC) Count 3.24 mill/uL (4.70-6.10); White Blood Cell (WBC) Count 7.5 thou/uL (4.8-10.8)
[2018-02-25 09:20] LABS: Anion Gap 16 mmol/L (10-20); BUN (Urea Nitrogen) 46 mg/dL (8.4-25.7); Calc. Creatinine Clearance 8 mL/min (70-130); Carbon Dioxide 26 mmol/L (23-31); Chloride 99 mmol/L (98-107); Estimated GFR-MDRD 6; Glucose 87 mg/dL (80-115); Potassium 5.3 mmol/L (3.5-5.1); Sodium 136 mmol/L (136-145)
[2018-02-25] MEDS ORDERED: Fentanyl 100 MCG/2 ML VIAL ONE ×3 (09:27→14:20)
[2018-02-25] MEDS ORDERED: CEFAZOLIN/Water 2 GM/20 ML SYRINGE ONE (09:32)
[2018-02-25] MEDS ORDERED: Bupivacaine/Epinephrine 0.25% 30 ML VIAL ONE (10:47)
[2018-02-25] MEDS ORDERED: Lidocaine 2% 10 ML INJ ONE (10:47)
--- NOTE | 2018-02-25 14:03 | OP ---
DATE OF PROCEDURE: 02/25/2018 PREOPERATIVE DIAGNOSES: End-stage renal disease; thrombosed fistula, right upper arm; previous coili ng embolization, basilic vein outflow. Left arm fistula exploration unsuccessful, inadequate veins. Hematoma, left proximal forearm, old surgical site painful and symptomatic. POSTOPERATIVE DIAGNOSIS: End-stage renal disease; thrombosed fistula, right upper arm; previous coil ing embolization, basilic vein outflow. Left arm fistula exploration unsuccessful, inadequate veins. Hematoma, left proximal forearm, old surgical site painful and symptomatic. PROCEDURE: Basilic vein transposition fistula, right arm with thrombectomy of arterialized cephalic vein stump from his old fistula with revision/utilization of that for the basilic vein transposition fistula. Evacuation of hematoma, left forearm surgical wound with primary closure and washout of wou nd. GENERAL ANESTHESIA: Local 0.5% Marcaine with epinephrine, 30 mL, mixed with 0.25% Marcaine with epin ephrine, 30 mL, mixed with 2% Xylocaine, 10 mL, total volume mixture used, general anesthesia. ESTIMATED BLOOD LOSS: 250 mL. PROCEDURE IN DETAIL: Patient was taken to the operating room where under general anesthesia, right u pper extremity was prepared with ChloraPrep, draped in routine fashion. Local anesthetic infiltrated into skin and subcutaneous tissue about the operative site. An incision was made over the proximal volar forearm incision and carried up the medial right upper arm dissecting the basilic vein free, di viding branch between 4-0 silk ties and clips. The patient had had prior Interventional Radiology co il embolization of the basilic vein outflow or this fistula to facilitate maturation of his cephalic vein fistula in the past. Thus, the entire length of the basilic vein was not available for use. It was dissected free up to a branch point where it became patent again and here it was spatulated and I flushed it with heparinized saline solution, it distended nicely and dissection was carried up high into the axilla. Basilic vein distended nicely and was dissected free up to a larger vein. It was fully mobilized to preserve this larger venous inflow. At this point, it was flushed with heparinize d saline solution, and dissection carried out of the distal upper arm and the proximal forearm, disse cting this thrombosed cephalic vein fistula. This was dissected free proximally. A counter incision was then made over the fistula at the junction of the mid and distal third upper arm, just distal to a large aneurysmal dilatation and this incision made transversely, carried down skin and subcutaneou s tissue and the old thrombosed fistula dissected free proximally and distally and then proximally it was transected and then dissected free and hematoma thrombus expressed from the thrombosed fistula. At this point, a 5-Joel catheter was placed towards the arterial inflow, the proximal radial halie ry, proximal volar forearm. An old clot was removed, but I could not pass the Joel catheter into the proximal radial artery to reestablish arterial inflow. Thus, a transverse venotomy was made with cephalic vein near the antecubital fossa, just proximal to the arterial inflow and thrombus removed with both the hemostat and Joel reestablishing arterial inflow. Vascular clamp was placed at this time. A Jocelyn-Wikelli tunneler 12 mm used to create a tunnel between the counter incision overlying th e old cephalic vein and the axilla and then patient was given 6000 units of heparin intravenously. T he basilic vein was then tunneled towards the cephalic vein stump, and then disconnected from the lisa neler and flushed with heparinized saline solution; it flushed well and was not torsed. At a branch point, the vein was spatulated. At this point, the transverse venotomy over the cephalic vein arteri al inflow was closed laterally with continuous suture of 6-0 Prolene and vascular clamp released and there was excellent flow in the fistula. Vascular clamp was reapplied. End vein to end vein anastom osis created with continuous suture of 6-0 Prolene and vascular clamps were released and there was ex cellent flow in the fistula by digital palpable examination. Good hemostasis had been obtained. The patient given 50 mg of protamine intravenously by Anesthesia. Subcutaneous tissues approximated, 3- 0 Monocryl, and skin with vee and sterile dressings applied. In preoperative holding area, the patient was noted to have a hematoma in his proximal forearm that w as very bothersome to him and painful. Thus, I talked to him about evacuating this. He was agreeabl e. We proceeded. Left antecubital area proximal forearm prepared with ChloraPrep, draped in routine fashion. Local an esthetic infiltrated into the skin and subcutaneous tissue about the operative site. Incision made t hrough the old longitudinal skin incision about the antecubital fossa and below and opened and hemato ma expressed. Wound washed out and then subcutaneous tissue was approximated with 3-0 Monocryl, skin with subdermal 4-0 Monocryl, and DermaGlue applied. The patient tolerated the procedure well.
[2018-02-25] MEDS ORDERED: PROPOFOL 200 MG/20 ML VIAL ONE (15:05)
[2018-02-25] MEDS ORDERED: ePHEDrine/0.9% NaCl/PF SYRINGE 50 mg/10 ml ONE (15:05)
[2018-02-25] MEDS ORDERED: Ondansetron HCl/PF 4 MG/2 ML Vial ONE (15:05)
[2018-02-25] MEDS ORDERED: PHENYLEPHRINE-NS 100 MCG/ML 10 ML SYRINGE ONE (15:05)
[2018-02-25] MEDS ORDERED: Heparin 10,000 UNITS/ 10 ML VIAL ONE ×2 (15:05→15:48)
[2018-02-25] MEDS ORDERED: Glycopyrrolate 0.2 MG/ML 5 ML SYRINGE ONE (15:05)
[2018-02-25] MEDS ORDERED: Lidocaine 1% PF 5 ML VIAL ONE (15:05)
[2018-02-25] MEDS ORDERED: Calcium Chloride 1 GM/10 ML Abboject SYRINGE ONE (15:05)
[2018-02-25] MEDS ORDERED: HYDROcodone/Acetaminophen 5/325 mg Tablet ONE (16:01)
== END 2018-02-25 16:45 | disposition home or self-care (01) ==
LOC: SDC 07:42
PROVIDERS: ATTEND Specialist
PROC: 0X9F0ZZ Drainage of Left Lower Arm, Open Approach (ICD-10-PCS; principal; 2018-02-25)
PROC: 05CD0ZZ Extirpation of Matter from Right Cephalic Vein, Open Approach (ICD-10-PCS; 2018-02-25)
DX: T82.868A Thrombosis due to vascular prosthetic devices, implants and grafts, initial encounter (principal); L76.32 Postprocedural hematoma of skin and subcutaneous tissue following other procedure; N18.6 End stage renal disease; Z79.82 Long term (current) use of aspirin; Z79.899 Other long term (current) drug therapy; Z88.5 Allergy status to narcotic agent; Z98.890 Other specified postprocedural states; Z99.2 Dependence on renal dialysis
CPT/HCPCS: 36415; 80048; 85025; 86850; 86900; 86901; 96374; J0670; J1644; J2001; J2405; J2704; J2720; J3010; Q9967